=== PATIENT | female | born 2005 | race Caucasian/White ===

== ENCOUNTER 2023-03-05 21:56 | Emergency (ER) | payer BC ==
[2023-03-05 22:26] VITALS: BP 142/95; PULSE 89
== END 2023-03-05 23:20 | disposition home or self-care (01) ==
LOC: JD.ED 21:56
DX: S93.401A Sprain of unspecified ligament of right ankle, initial encounter (principal); Z88.0 Allergy status to penicillin; Z88.1 Allergy status to other antibiotic agents; X50.1XXA Overexertion from prolonged static or awkward postures, initial encounter
CPT/HCPCS: 73610-26-RT; 73610-RT; 99283